=== PATIENT | female | born 1930 | race African-American/Black ===

== ENCOUNTER 2018-01-29 12:26 | Inpatient (IN) ==
[2018-01-29 13:47] LABS: Basophils % 0.1 % (0.0-0.8); Eosinophils # 0.1 10*3/uL (0.0-0.87); Eosinophils % 0.8 % (0.00-10.9); Hematocrit 27.5 VOL% (35.7-47.0); Hemoglobin 8.1 GM/DL (12.0-16.0); Immature Granulocytes % 0.7 %; Immature Granulocytes Absolute 0.06 #; Lymphocytes # 1.2 10*3/uL (1.4-4.0); Lymphocytes % 13.9 % (21.3-54.2); Mean Corpuscular HGB Conc 29.5 GM/DL (32-36); Mean Corpuscular Hemoglobin 23 PG (27-34); Mean Corpuscular Volume 78.1 FL (87-102); Mean Platelet Volume 9.5 FL (9.6-12.0); Monocytes # 0.4 10*3/uL (0.11-0.8); Monocytes % 4.7 % (1.7-12.7); Neutrophils # 6.6 10*3/uL (1.4-7.4); Neutrophils % 79.8 % (38.7-73.9); Platelet Count 346 T/CUMM (130-400); Red Blood Count 3.52 MC/CUMM (3.8-5.5); Red Cell Distribution Width 18.4 % (9.3-17.3); White Blood Count 8.3 T/CUMM (4-12)
[2018-01-29 14:09] LABS: Alanine Aminotransferase 15 U/L (13-56); Albumin 2.5 G/DL (3.4-5.0); Alkaline Phosphatase 79 U/L (45-117); Aspartate Amino Transferase 13 U/L (0-37); Bilirubin,Total < 0.39 MG/DL (0.2-1.0); Blood Urea Nitrogen 17 MG/DL (7-18); Calcium 9.3 MG/DL (8.5-10.1); Glucose 114 MG/DL (74-106); Potassium 3.5 MMOL/L (3.5-5.1); Sodium 143 MMOL/L (136-145); Total Protein 6.4 G/DL (6.4-8.3)
[2018-01-29 20:02] LABS: Apearance,Urine Slightly Hazy (Clear); Bacteria,Urine Occasional /HPF (Few); Bilirubin,Urine Negative (Negative); Blood, Urine Small mg/dL (Negative); Glucose,Urine (UA) Negative (Negative); Hyaline Casts,Urine 42 /LPF (0-3); Ketones,Urine Negative (Negative); Mucus,Urine Few /LPF (Occasional); Nitrite,Urine Negative (Negative); Protein,Urine Negative; RBC,Urine 1 /HPF (0-4); Squamous Epithelial Cell,Urine Occasional /HPF (0-10); Urine Color Yellow (Yellow); Urine Specific Gravity 1.012 (1.001-1.035); Urine Urobilinogen < 2.0 EU/DL (0.2-1.0); WBC,Urine <1 /HPF (0-6)
[2018-01-29 23:06] LABS: Hematocrit 27.1 VOL% (35.7-47.0); Hemoglobin 8.2 GM/DL (12.0-16.0)
[2018-01-30 04:29] LABS: Hematocrit 25.1 VOL% (35.7-47.0); Hemoglobin 7.8 GM/DL (12.0-16.0)
[2018-01-30 04:32] LABS: Basophils % 0.2 % (0.0-0.8); Eosinophils % 0.1 % (0.00-10.9); Hematocrit 26.2 VOL% (35.7-47.0); Hemoglobin 7.7 GM/DL (12.0-16.0); Immature Granulocytes % 0.5 %; Lymphocytes # 1.6 10*3/uL (1.4-4.0); Mean Corpuscular HGB Conc 29.4 GM/DL (32-36); Mean Corpuscular Hemoglobin 23 PG (27-34); Mean Corpuscular Volume 79.4 FL (87-102); Mean Platelet Volume 10.1 FL (9.6-12.0); Monocytes # 0.8 10*3/uL (0.11-0.8); Neutrophils # 17.3 10*3/uL (1.4-7.4); Neutrophils % 87.2 % (38.7-73.9); Red Cell Distribution Width 18.3 % (9.3-17.3); White Blood Count 19.8 T/CUMM (4-12)
[2018-01-30 04:47] LABS: Platelet Count 255 T/CUMM (130-400)
[2018-01-30 05:02] LABS: Calcium 8.9 MG/DL (8.5-10.1); Osmolality,Calculated 291.7 MOS/KG (273-304); Potassium 3.6 MMOL/L (3.5-5.1)
[2018-01-30 06:39] LABS: Band Neutrophils 12 % (0-10); Hypochromasia 1+; Lymphocytes 13 % (20-55); Metamyelocytes 1 %; Segmented Neutrophils 68 % (50-85); Total Cells Counted 100
[2018-01-30 06:40] LABS: Microcytosis 1+; Ovalocytes Slight; Platelet Estimate Normal; Target Cells Slight
[2018-01-30 12:07] LABS: Hematocrit 23.5 VOL% (35.7-47.0); Hemoglobin 7.2 GM/DL (12.0-16.0)
[2018-01-31 04:34] LABS: Basophils % 0.2 % (0.0-0.8); Eosinophils # 0.1 10*3/uL (0.0-0.87); Eosinophils % 0.7 % (0.00-10.9); Hematocrit 31.7 VOL% (35.7-47.0); Hematocrit 32.3 VOL% (35.7-47.0); Hemoglobin 10.4 GM/DL (12.0-16.0); Immature Granulocytes % 0.7 %; Immature Granulocytes Absolute 0.11 #; Lymphocytes # 1.3 10*3/uL (1.4-4.0); Lymphocytes % 8.1 % (21.3-54.2); Mean Corpuscular HGB Conc 32.8 GM/DL (32-36); Mean Corpuscular Hemoglobin 25 PG (27-34); Mean Corpuscular Volume 75.8 FL (87-102); Mean Platelet Volume 9.9 FL (9.6-12.0); Monocytes # 1.1 10*3/uL (0.11-0.8); Monocytes % 6.8 % (1.7-12.7); Neutrophils # 13.1 10*3/uL (1.4-7.4); Neutrophils % 83.5 % (38.7-73.9); Platelet Count 243 T/CUMM (130-400); Red Blood Count 4.18 MC/CUMM (3.8-5.5); White Blood Count 15.6 T/CUMM (4-12)
[2018-01-31 04:53] LABS: Calcium 9.1 MG/DL (8.5-10.1); Potassium 3.4 MMOL/L (3.5-5.1)
[2018-02-01 04:19] LABS: Basophils % 0.2 % (0.0-0.8); Eosinophils # 0.3 10*3/uL (0.0-0.87); Eosinophils % 2.5 % (0.00-10.9); Hematocrit 31.4 VOL% (35.7-47.0); Hemoglobin 10.1 GM/DL (12.0-16.0); Immature Granulocytes % 0.7 %; Immature Granulocytes Absolute 0.09 #; Lymphocytes # 1.3 10*3/uL (1.4-4.0); Lymphocytes % 10.6 % (21.3-54.2); Mean Corpuscular HGB Conc 32.2 GM/DL (32-36); Mean Corpuscular Hemoglobin 25 PG (27-34); Mean Corpuscular Volume 78.7 FL (87-102); Monocytes # 0.9 10*3/uL (0.11-0.8); Monocytes % 6.8 % (1.7-12.7); Neutrophils % 79.2 % (38.7-73.9); Platelet Count 225 T/CUMM (130-400); Red Blood Count 3.99 MC/CUMM (3.8-5.5); Red Cell Distribution Width 18.1 % (9.3-17.3); White Blood Count 12.6 T/CUMM (4-12)
[2018-02-01 04:42] LABS: Calcium 9.2 MG/DL (8.5-10.1); Potassium 3.3 MMOL/L (3.5-5.1)
[2018-02-01 12:25] VITALS: BP 118/78
== END 2018-02-01 13:50 | disposition home health service (06) | DRG 640 ==
LOC: EDUNIT# → EDBD → N.ED 12:26 → N.EDINP 15:02 → SUATTDRO 15:02 → N.2E 19:12 → N.TELEN 19:51
PROVIDERS: ATTEND Internal Medicine

== ENCOUNTER 2018-02-09 11:16 | Inpatient (IN) ==
[2018-02-09] MEDS ORDERED: ATROPINE 1 MG/10 ML SYRINGE ONE (11:36)
[2018-02-09 12:20] LABS: Basophils % 0.5 % (0.0-0.8); Eosinophils # 0.1 10*3/uL (0.0-0.87); Eosinophils % 0.6 % (0.00-10.9); Hematocrit 35.5 VOL% (35.7-47.0); Hemoglobin 10.8 GM/DL (12.0-16.0); Immature Granulocytes % 0.4 %; Immature Granulocytes Absolute 0.03 #; Lymphocytes # 1.2 10*3/uL (1.4-4.0); Lymphocytes % 14.7 % (21.3-54.2); Mean Corpuscular HGB Conc 30.4 GM/DL (32-36); Mean Corpuscular Hemoglobin 25 PG (27-34); Mean Corpuscular Volume 81.8 FL (87-102); Mean Platelet Volume 9.5 FL (9.6-12.0); Monocytes # 0.4 10*3/uL (0.11-0.8); Monocytes % 4.8 % (1.7-12.7); Neutrophils # 6.2 10*3/uL (1.4-7.4); Platelet Count 352 T/CUMM (130-400); Red Blood Count 4.34 MC/CUMM (3.8-5.5); Red Cell Distribution Width 19.6 % (9.3-17.3); White Blood Count 7.9 T/CUMM (4-12)
[2018-02-09 12:46] LABS: Albumin 2.7 G/DL (3.4-5.0); Bilirubin,Total 0.5 MG/DL (0.2-1.0); Calcium 9.4 MG/DL (8.5-10.1); Osmolality,Calculated 285.7 MOS/KG (273-304); Potassium 4.4 MMOL/L (3.5-5.1); Total Protein 6.2 G/DL (6.4-8.3)
[2018-02-09] MEDS ORDERED: ATROPINE 1 MG/10 ML SYRINGE IV STA (13:27)
[2018-02-09] MEDS ORDERED: DIGOXIN IMMUNE FAB IV STA ×2 (13:58→14:20)
[2018-02-09] MEDS ORDERED: SODIUM CHLORIDE 0.9% IV STA ×2 (13:58→14:20)
[2018-02-09] MEDS ORDERED: ACETAMINOPHEN 325 MG TABLET PO PRN (14:32)
[2018-02-09] MEDS ORDERED: ONDANSETRON 4 MG/2 ML VIAL IV PRN (14:32)
[2018-02-09 18:59] LABS: Troponin I 0.454 NG/ML (0.00-0.045)
[2018-02-09] MEDS ORDERED: LATANOPROST 0.005% OPH SOLN 2.5 ML BOTTLE BOTH EYES SCH (21:00)
[2018-02-10 05:17] LABS: Basophils % 0.5 % (0.0-0.8); Eosinophils # 0.1 10*3/uL (0.0-0.87); Eosinophils % 1.6 % (0.00-10.9); Hematocrit 30.2 VOL% (35.7-47.0); Hemoglobin 9.3 GM/DL (12.0-16.0); Immature Granulocytes % 0.7 %; Immature Granulocytes Absolute 0.06 #; Lymphocytes # 1.8 10*3/uL (1.4-4.0); Lymphocytes % 20.9 % (21.3-54.2); Mean Corpuscular HGB Conc 30.8 GM/DL (32-36); Mean Corpuscular Hemoglobin 25 PG (27-34); Mean Platelet Volume 9.5 FL (9.6-12.0); Monocytes # 0.7 10*3/uL (0.11-0.8); Monocytes % 7.8 % (1.7-12.7); Neutrophils % 68.5 % (38.7-73.9); Platelet Count 337 T/CUMM (130-400); Red Blood Count 3.73 MC/CUMM (3.8-5.5); Red Cell Distribution Width 19.7 % (9.3-17.3); White Blood Count 8.7 T/CUMM (4-12)
[2018-02-10 05:43] LABS: Calcium 9.1 MG/DL (8.5-10.1); Osmolality,Calculated 284.7 MOS/KG (273-304); Potassium 3.2 MMOL/L (3.5-5.1)
[2018-02-10 06:02] LABS: Apearance,Urine CLOUDY (Clear); Bacteria,Urine Occasional /HPF (Few); Bilirubin,Urine Negative (Negative); Blood, Urine Negative (Negative); Glucose,Urine (UA) Negative (Negative); Ketones,Urine 5 mg/dL (Negative); Mucus,Urine Occasional /LPF (Occasional); Nitrite,Urine Negative (Negative); Protein,Urine 30 MG/DL; RBC,Urine 3 /HPF (0-4); Squamous Epithelial Cell,Urine Few /HPF (0-10); Urine Color Yellow (Yellow); Urine Specific Gravity 1.016 (1.001-1.035); Urine Urobilinogen < 2.0 EU/DL (0.2-1.0); WBC,Urine 15 /HPF (0-6)
[2018-02-10] MEDS ORDERED: POTASSIUM CHLORIDE 20 MEQ TABLET PO ONE (06:05)
[2018-02-10] MEDS: PANTOPRAZOLE 40 MG TABLET PO SCH (08:28)
[2018-02-10] MEDS: ASPIRIN EC 81 MG TABLET PO SCH (08:28)
[2018-02-10] MEDS: RIVAROXABAN 10 MG TABLET PO SCH (08:28)
[2018-02-10] MEDS ORDERED: DONEPEZIL 10 MG TABLET PO SCH (09:00)
[2018-02-10] MEDS ORDERED: hydrALAZINE 20 MG/1 ML VIAL IV PRN (16:04)
[2018-02-10] MEDS: amLODIPine 10 MG TABLET PO SCH (17:01)
[2018-02-10] MEDS: ATROPINE 1 MG/10 ML SYRINGE IV PRN ×2 (20:19→22:32)
[2018-02-11 04:36] LABS: Basophils % 0.5 % (0.0-0.8); Eosinophils # 0.3 10*3/uL (0.0-0.87); Eosinophils % 3.2 % (0.00-10.9); Hematocrit 32.7 VOL% (35.7-47.0); Hemoglobin 10.3 GM/DL (12.0-16.0); Immature Granulocytes % 0.5 %; Immature Granulocytes Absolute 0.04 #; Lymphocytes # 1.3 10*3/uL (1.4-4.0); Mean Corpuscular HGB Conc 31.5 GM/DL (32-36); Mean Corpuscular Hemoglobin 25 PG (27-34); Mean Corpuscular Volume 79.8 FL (87-102); Mean Platelet Volume 9.6 FL (9.6-12.0); Monocytes # 0.6 10*3/uL (0.11-0.8); Monocytes % 7.5 % (1.7-12.7); Neutrophils # 6.1 10*3/uL (1.4-7.4); Neutrophils % 72.3 % (38.7-73.9); Platelet Count 384 T/CUMM (130-400); White Blood Count 8.4 T/CUMM (4-12)
[2018-02-11] MEDS ORDERED: diphenhydrAMINE 50 MG/1 ML VIAL IV PRN (04:44)
[2018-02-11] MEDS ORDERED: FAMOTIDINE 20 MG/2 ML VIAL IV ONE (04:44)
[2018-02-11] MEDS ORDERED: ALBUTEROL/IPRATROPIUM 3 ML NEB RESP TX ONE (04:44)
[2018-02-11] MEDS ORDERED: ALBUTEROL/IPRATROPIUM 3 ML NEB RESP TX PRN (04:44)
[2018-02-11 04:52] LABS: Calcium 9.5 MG/DL (8.5-10.1); Osmolality,Calculated 286.6 MOS/KG (273-304); Potassium 3.6 MMOL/L (3.5-5.1)
[2018-02-11] MEDS: methylPREDNISolone SOD SUC 125 MG/2 ML VIAL IV SCH ×2 (05:03→13:13)
[2018-02-11] MEDS: PANTOPRAZOLE 40 MG TABLET PO SCH (08:58)
[2018-02-11] MEDS: ASPIRIN EC 81 MG TABLET PO SCH (08:59)
[2018-02-11] MEDS: amLODIPine 10 MG TABLET PO SCH (08:59)
[2018-02-11] MEDS: RIVAROXABAN 10 MG TABLET PO SCH (08:59)
[2018-02-11] MEDS: cefTRIAXone 1,000 MG in SYRINGE 1 EACH IV SCH (14:08)
[2018-02-11] MEDS ORDERED: FAMOTIDINE 20 MG/2 ML VIAL IV SCH (21:00)
[2018-02-12] MEDS ORDERED: diphenhydrAMINE 50 MG/1 ML VIAL IM ONE (02:18)
[2018-02-12 05:30] LABS: Calcium 9.9 MG/DL (8.5-10.1); Osmolality,Calculated 290.8 MOS/KG (273-304); Potassium 3.8 MMOL/L (3.5-5.1)
[2018-02-12] MEDS: cefTRIAXone 1,000 MG in SYRINGE 1 EACH IV SCH (09:12)
[2018-02-12] MEDS: PANTOPRAZOLE 40 MG TABLET PO SCH (09:16)
[2018-02-12] MEDS: ASPIRIN EC 81 MG TABLET PO SCH (09:16)
[2018-02-12] MEDS: RIVAROXABAN 10 MG TABLET PO SCH (09:16)
[2018-02-12] MEDS: amLODIPine 10 MG TABLET PO SCH (09:16)
[2018-02-12] MEDS: AMPICILLIN INJ 1,000 MG in SODIUM CHLORIDE 0.9% 100 ML IV SCH ×2 (17:27→23:25)
[2018-02-12] MEDS ORDERED: diphenhydrAMINE CAP 50 MG CAPSULE PO ONE (22:35)
[2018-02-13] MEDS: AMPICILLIN INJ 1,000 MG in SODIUM CHLORIDE 0.9% 100 ML IV SCH ×2 (05:45→10:24)
[2018-02-13] MEDS: amLODIPine 10 MG TABLET PO SCH (09:27)
[2018-02-13] MEDS: ASPIRIN EC 81 MG TABLET PO SCH (09:27)
[2018-02-13] MEDS: PANTOPRAZOLE 40 MG TABLET PO SCH (09:27)
[2018-02-13] MEDS: RIVAROXABAN 10 MG TABLET PO SCH (09:27)
[2018-02-13] MEDS: cefTRIAXone 1,000 MG in SYRINGE 1 EACH IV SCH (09:27)
[2018-02-13 11:23] VITALS: BP 137/74
[2018-02-13] MEDS ORDERED: AMPICILLIN 500 MG CAPSULE PO SCH (13:00)
== END 2018-02-13 13:08 | disposition home or self-care (01) | DRG 309 ==
LOC: EDBD → EDUNIT# → N.ED 11:16 → SUATTDRO 13:16 → N.EDINP 13:16 → N.TELES 16:45
PROVIDERS: ADMIT Internal Medicine; ATTEND Internal Medicine

== ENCOUNTER 2019-04-22 13:39 | Observation (INO) ==
[2019-04-22 15:22] LABS: Albumin 3.5 G/DL (3.4-5.0); Bilirubin,Total 0.7 MG/DL (0.2-1.0); Calcium 9.5 MG/DL (8.5-10.1); Osmolality,Calculated 279.5 MOS/KG (273-304); Total Protein 7.8 G/DL (6.4-8.3)
[2019-04-22 15:36] LABS: Basophils % 0.2 % (0.0-0.8); Eosinophils % 0.1 % (0.00-10.9); Hematocrit 35.2 VOL% (35.7-47.0); Immature Granulocytes % 0.5 %; Immature Granulocytes Absolute 0.08 #; Lymphocytes # 0.8 10*3/uL (1.4-4.0); Lymphocytes % 5.3 % (21.3-54.2); Mean Corpuscular HGB Conc 27.3 GM/DL (32-36); Mean Corpuscular Volume 68.5 FL (87-102); Mean Platelet Volume 9.7 FL (9.6-12.0); Monocytes % 3.7 % (1.7-12.7); Neutrophils % 90.2 % (38.7-73.9); Platelet Count 367 T/CUMM (130-400); Red Blood Count 5.14 MC/CUMM (3.8-5.5); Red Cell Distribution Width 22.7 % (9.3-17.3); White Blood Count 15.7 T/CUMM (4-12)
[2019-04-22 15:47] LABS: Hemoglobin 9.6 GM/DL (12.0-16.0)
[2019-04-22 16:13] LABS: Apearance,Urine Slightly Hazy (Clear); Bacteria,Urine Occasional /HPF (Few); Bilirubin,Urine Negative (Negative); Blood, Urine Small mg/dL (Negative); Glucose,Urine (UA) Negative (Negative); Ketones,Urine Negative (Negative); Mucus,Urine Occasional /LPF (Occasional); Nitrite,Urine Negative (Negative); Protein,Urine 30 MG/DL; RBC,Urine 1 /HPF (0-4); Squamous Epithelial Cell,Urine Occasional /HPF (0-10); Urine Color Yellow (Yellow); Urine Specific Gravity 1.017 (1.001-1.035); Urine Urobilinogen < 2.0 EU/DL (0.2-1.0); WBC,Urine 3 /HPF (0-6)
[2019-04-22] MEDS ORDERED: FUROSEMIDE 100 MG/10 ML VIAL IV STA (17:13)
[2019-04-22] MEDS ORDERED: cefTRIAXone 1,000 MG in SODIUM CHLORIDE 0.9% 100 ML IV STA (17:15)
[2019-04-22] MEDS ORDERED: ACETAMINOPHEN 325 MG TABLET PO PRN (17:15)
[2019-04-22] MEDS ORDERED: ONDANSETRON 4 MG/2 ML VIAL IV PRN (17:15)
[2019-04-22] MEDS ORDERED: cefTRIAXone 1,000 MG VIAL ONE (17:18)
[2019-04-22] MEDS ORDERED: SODIUM CHLORIDE 0.9% 100 ML IV ONE (17:18)
[2019-04-22] MEDS ORDERED: INFLUENZA VIRUS VACCINE 0.5 ML SYRINGE IM ONE (20:33)
[2019-04-22] MEDS ORDERED: PNEUMOCOCCAL VACCINE (13 VALENT) 0.5 ML SYRINGE IM ONE (20:33)
[2019-04-22] MEDS: DOCUSATE SODIUM 100 MG CAPSULE PO SCH (21:09)
[2019-04-23] MEDS: DOCUSATE SODIUM 100 MG CAPSULE PO SCH ×2 (09:08→22:45)
[2019-04-23] MEDS: PANTOPRAZOLE 40 MG TABLET PO SCH (09:08)
[2019-04-23 11:02] LABS: Calcium 9.5 MG/DL (8.5-10.1)
[2019-04-23 11:08] LABS: Basophils % 0.2 % (0.0-0.8); Eosinophils # 0.1 10*3/uL (0.0-0.87); Eosinophils % 0.7 % (0.00-10.9); Hematocrit 26.6 VOL% (35.7-47.0); Hemoglobin 7.4 GM/DL (12.0-16.0); Immature Granulocytes % 0.4 %; Immature Granulocytes Absolute 0.06 #; Lymphocytes # 1.2 10*3/uL (1.4-4.0); Lymphocytes % 7.6 % (21.3-54.2); Mean Corpuscular HGB Conc 27.8 GM/DL (32-36); Mean Corpuscular Volume 66.7 FL (87-102); Mean Platelet Volume 9.8 FL (9.6-12.0); Monocytes % 6.9 % (1.7-12.7); Neutrophils % 84.2 % (38.7-73.9); Platelet Count 283 T/CUMM (130-400); Red Blood Count 3.99 MC/CUMM (3.8-5.5); White Blood Count 16.2 T/CUMM (4-12)
[2019-04-23] MEDS ORDERED: POTASSIUM CHLORIDE 20 MEQ TABLET PO ONE (15:00)
[2019-04-23 16:09] LABS: Hematocrit 31.4 VOL% (35.7-47.0)
[2019-04-23 16:11] LABS: Hemoglobin 8.5 GM/DL (12.0-16.0)
[2019-04-23] MEDS: RIVAROXABAN 10 MG TABLET PO SCH (16:35)
[2019-04-23] MEDS ORDERED: DONEPEZIL 10 MG TABLET PO SCH (21:00)
[2019-04-23] MEDS: LATANOPROST 0.005% OPH SOLN 2.5 ML BOTTLE BOTH EYES SCH (21:57)
[2019-04-24] MEDS: PANTOPRAZOLE 40 MG TABLET PO SCH (08:53)
[2019-04-24] MEDS: DOCUSATE SODIUM 100 MG CAPSULE PO SCH (08:53)
[2019-04-24] MEDS: LATANOPROST 0.005% OPH SOLN 2.5 ML BOTTLE BOTH EYES SCH (08:56)
[2019-04-24] MEDS ORDERED: amLODIPine 10 MG TABLET PO SCH (09:00)
[2019-04-24] MEDS ORDERED: ASPIRIN EC 81 MG TABLET PO SCH (09:00)
[2019-04-24] MEDS: RIVAROXABAN 10 MG TABLET PO SCH (09:01)
[2019-04-24 16:17] VITALS: BP 104/57
== END 2019-04-24 16:34 | disposition home or self-care (01) ==
LOC: EDBD → EDUNIT# → N.EDINP 13:39 → N.ED 13:39 → N.2E 19:23
PROVIDERS: ADMIT Family Medicine; ATTEND Family Medicine